=== PATIENT | male | born 1960 | race Caucasian/White ===

== ENCOUNTER 2022-08-17 16:26 | Emergency (ER) | payer BC ==
[~2022-08-17] VITALS: Ht 188 cm; Wt 84.8 kg
--- NOTE | 2022-08-17 16:36 | NUR ---
Pt states he took ASA 325mg po prior to coming to ER.
--- NOTE | 2022-08-17 16:40 | NUR ---
Pt was seen and examined by , plan of care discussed.
[2022-08-17 16:49] LABS: HEMATOCRIT 40.6 % (36.7-47.1); MEAN CORPUSCULAR HEMOGLOBIN 30.1 uug (23.8-33.4); MEAN CORPUSCULAR VOLUME 87.8 fL (73.0-96.2); PLATELET COUNT (AUTO) 196 K/uL (152-348)
[2022-08-17 17:02] LABS: CARBON DIOXIDE 30 mmol/L (21-32); CHLORIDE 102 mmol/L (98-107); GLUCOSE 98 mg/dL (74-106); POTASSIUM 3.9 mmol/L (3.5-5.1); UREA NITROGEN, BLOOD 16 mg/dL (7-18)
[2022-08-17 17:11] LABS: ALANINE AMINOTRANSFERASE 24 U/L (16-63); ALKALINE PHOSPHATASE 88 U/L (50-136); ASPARTATE AMINOTRANSFERASE 25 U/L (15-37); BILIRUBIN,DIRECT 0.1 mg/dL (0.0-0.2); BILIRUBIN,TOTAL 0.5 mg/dL (0.2-1.0); TOTAL PROTEIN, SERUM 7.1 g/dL (6.4-8.2)
[2022-08-17] MEDS ORDERED: PREG150C PO (17:46)
[2022-08-17] MEDS ORDERED: TERA2CAP4 PO (17:46)
[2022-08-17] MEDS ORDERED: VENL150C2 PO (17:46)
--- NOTE | 2022-08-17 18:52 | NUR ---
Patient to go to room 304 nurse Kim will take patient.
[2022-08-17] MEDS ORDERED: NITROGLYCERIN OINT 1 GM PACKET TP ONE ×2 (19:00→19:28)
[2022-08-17] MEDS ORDERED: METOPROLOL TARTRATE 50 MG TABLET PO ONE (19:00)
[2022-08-17] MEDS ORDERED: METOPROLOL TARTRATE 5 MG/5 ML VIAL IVP ONE ×2 (19:00→19:28)
[2022-08-17] MEDS ORDERED: ASPIRIN 81 MG TAB.CHEW PO ONE (19:00)
[2022-08-17] MEDS ORDERED: ONDANSETRON 4 MG/2 ML VIAL ONE (19:27)
[2022-08-17] MEDS ORDERED: MAGNESIUM SULFATE/D5W 200 ML ONE (19:28)
[2022-08-17] MEDS ORDERED: METOPROLOL TARTRATE 50 MG TABLET ONE (19:28)
[2022-08-17] MEDS ORDERED: HYDROMORPHONE 1 MG/1 ML DISP.SYRIN ONE (19:29)
[2022-08-17] MEDS ORDERED: HYDROMORPHONE 1 MG/1 ML DISP.SYRIN IV ONE (19:30)
[2022-08-17] MEDS ORDERED: ONDANSETRON 4 MG/2 ML VIAL IV ONE (19:30)
[2022-08-17 19:48] VITALS: BP 159/99
[2022-08-17] MEDS: MAGNESIUM SULFATE/D5W 100 ML IV SCH ×2 (19:50→21:00)
--- NOTE | 2022-08-17 20:03 | NUR ---
Called [facility] for panel call. Dr. Guthrie human relations teacher.
[2022-08-17] MEDS ORDERED: THIAMINE HCL 200 MG/2 ML VIAL ONE (20:28)
[2022-08-17] MEDS ORDERED: ACETAMINOPHEN 325 MG TABLET PO PRN (22:00)
[2022-08-17] MEDS ORDERED: ENOXAPARIN SODIUM 40 MG/0.4 ML DISP.SYRIN SQ SCH (22:00)
[2022-08-17] MEDS ORDERED: ONDANSETRON 4 MG/2 ML VIAL IV PRN (22:00)
[2022-08-17] MEDS ORDERED: REMEDY ESSENTIAL ZINC PASTE 113 GM TP PRN (22:00)
[2022-08-17] MEDS ORDERED: MAGNESIUM HYDROXIDE 30 ML LIQUID UDC PO PRN (22:00)
--- NOTE | 2022-08-17 22:29 | NUR ---
Report given to ETELVINA Alvarez.
--- NOTE | 2022-08-17 22:38 | NUR ---
Dr. Morejon speaking with Dr. Block.
[2022-08-17] MEDS ORDERED: HEPARIN/D5W DRIP 500 ML IV PRN (23:00)
--- NOTE | 2022-08-17 23:05 | NUR ---
Called [facility] for higher level of care transfer, faxed patient's facesheet and clinicals to .
[2022-08-17] MEDS ORDERED: HEPARIN/D5W DRIP 500 ML ONE (23:39)
[2022-08-17] MEDS ORDERED: HEPARIN SODIUM,PORCINE 5,000 UNITS/ML VIAL ONE (23:53)
[2022-08-18] MEDS ORDERED: ACETAMINOPHEN 325 MG TABLET ONE (00:22)
--- NOTE | 2022-08-18 00:26 | NUR ---
Called [facility], spoke with Naila, patient's case is still under review, awaiting call back.
[2022-08-18] MEDS ORDERED: HEPARIN SODIUM,PORCINE/PF 100 UNIT/ML, 5ML SYR XX ONE (00:30)
--- NOTE | 2022-08-18 00:54 | NUR ---
Spoke to Naila from [facility], she stated that [facility] is at capacity; therefore, they are unable take the patient.
--- NOTE | 2022-08-18 01:13 | NUR ---
Called [facility], spoke with Ira, Faxed patient info to: .
--- NOTE | 2022-08-18 03:02 | NUR ---
Received call back from [facility], patient to be transferred for ER to ER, Accepting MD is Dr. Lin, Accepting Bridge Expert is Dr. Hernandez. Will call for eta and report.
[2022-08-18] MEDS: ASPIRIN 81 MG TAB.CHEW PO SCH ×2 (03:05→09:17)
--- NOTE | 2022-08-18 03:05 | NUR ---
[facility] and [facility] do not have any avaliable ALS transportation.
--- NOTE | 2022-08-18 03:15 | NUR ---
[facility] is avaliable for ALS transportation, eta 1100.
[2022-08-18] MEDS ORDERED: ONDANSETRON 4 MG/2 ML VIAL IV ONE (03:30)
[2022-08-18] MEDS ORDERED: HYDROMORPHONE 1 MG/1 ML DISP.SYRIN IV ONE (03:30)
[2022-08-18] MEDS ORDERED: HYDROMORPHONE 1 MG/1 ML DISP.SYRIN ONE (03:36)
[2022-08-18] MEDS ORDERED: ONDANSETRON 4 MG/2 ML VIAL ONE (03:36)
--- NOTE | 2022-08-18 03:45 | NUR ---
Observed patient walking to restroom. Ambulatory with a steady gait.
--- NOTE | 2022-08-18 04:59 | NUR ---
Called [facility] ambulance for critical care transport to [facility], given ETA [phone].
[2022-08-18 06:05] LABS: HEMATOCRIT 41.2 % (36.7-47.1); MEAN CORPUSCULAR HEMOGLOBIN 30.4 uug (23.8-33.4); MEAN CORPUSCULAR VOLUME 88.3 fL (73.0-96.2); PLATELET COUNT (AUTO) 183 K/uL (152-348)
[2022-08-18 06:17] LABS: MAGNESIUM 2.5 mg/dL (1.8-2.4); PHOSPHOROUS 3.9 mg/dL (2.5-4.9)
--- NOTE | 2022-08-18 06:58 | NUR ---
Patient sleeping. Non- labored breathing noted. NAD noted.
[2022-08-18] MEDS ORDERED: PANTOPRAZOLE SODIUM 40 MG TABLET.DR PO SCH (07:00)
--- NOTE | 2022-08-18 07:18 | NUR ---
Report given to ETELVINA Moore.
--- NOTE | 2022-08-18 07:30 | NUR ---
1st contact with patient: he is asleep, easily arousable, respiration:easy, regular, non-labored and even. Skin is warm and dry, still with 3/10 mid-anterior chest pains, "...like indigestion" per patient's verbalization. Patient is for transfer to [facility] :ER to ER transfer for higher level of care per night stocker social staff worker Vijay with critical care transfer ambulance [id number] today. Dr Lin and Dr Hernandez of [facility] accepted this patient. Nurse Roth of [facility] Transfer Center accepted this patient.
[2022-08-18] MEDS ORDERED: ASPIRIN 81 MG TAB.CHEW ONE (09:16)
--- NOTE | 2022-08-18 09:20 | NUR ---
ER storage battery charger Barbara informed patient re: [facility] ambulance [id number] today.
--- NOTE | 2022-08-18 09:32 | NUR ---
Patient will be tranferred to outside Facility: [facility] ER Physician: Riley and Dr Hernandez (manager critical care unit) Location: EMERGENCY ROOM [facility] ambulance PRR=[id number] transfer center staff: ETELVINA Roth Addendum: 08/18/22 at 0935 by [facility] ETA= [id number] per ER charge authorizer Grace
--- NOTE | 2022-08-18 11:24 | NUR ---
[facility] ambulance is here. Rn Obgyn Lex said that they do not accept heaprin drip. Dr Couch and ER hot metal charger Grace notified. Dr Gallegos (ER doctor from [facility]) was notified by our ER doctor Iza.
--- NOTE | 2022-08-18 11:37 | NUR ---
[facility] ambulance unit# [id number] is here. SBAR given to ETELVINA Wilson and EMT Trey accepted report, pending coags results at this time.
--- NOTE | 2022-08-18 11:51 | NUR ---
PTT=53.8. MD notified. No change with heparin drip rate at this time (1000units/hour) per protocol, verified by hospital pharmacist Zach.
== END 2022-08-18 11:59 | disposition short-term general hospital (02) ==
LOC: ER 16:26 → EDBD 16:26 → UNDOADMIN 22:21 → TELE3 22:21 → ER 08-18 11:59
DX: I21.4 Non-ST elevation (NSTEMI) myocardial infarction (principal); Z20.822 Contact with and (suspected) exposure to COVID-19; I10 Essential (primary) hypertension; Z79.899 Other long term (current) drug therapy
CPT/HCPCS: 99285; 93307; 96365 ×2; 71045; 96375 ×3; 87426; 80076; 80048 ×2; 85025 ×2; 84484 ×3; 36415 ×2; 93005 ×4; 96366; 83735; 84100; 85610; 85730; 96376; J1644 ×2; J3475; J3490; J2405 ×2; J3411; J1170 ×2; J7040; A4663